=== PATIENT | male | born 2000 | race Asian ===

== ENCOUNTER 2022-06-27 15:54 | Emergency (ER) | payer OTHER ==
[2022-06-27 16:19] VITALS: BP 147/95
--- NOTE | 2022-06-27 16:52 | XRAY Report ---
PROCEDURE: Knee 4 View LT INDICATIONS: L knee pain s/p twist playing basketball TECHNIQUE: 4 views of the left knee(s) were acquired. COMPARISON: None. FINDINGS: Bones: No fractures or dislocations. No suspicious bony lesions. Soft tissues: There is a mild joint effusion. No suspicious soft tissue calcifications. IMPRESSION: Mild joint effusion, without an acute bony abnormality seen. If it would be helpful for clinical management decision making, please consider a dedicated, schedule d knee MRI for further evaluation (assuming that there is no contraindication). Reviewed by: Leo Lugo MD on 06/27/2022 3:50 PM [facility] Approved by: Leo Lugo MD on 06/27/2022 3:50 PM [facility] Station ID: [id number]
--- NOTE | 2022-06-27 17:02 | ED Physician Documentation ---
PD HPI LOWER EXT INJURY - Stated complaint Stated Complaint: LT KNEE INJ - Chief complaint Chief Complaint: Trauma Ext - History obtained from History obtained from: Patient - History of Present Illness PD HPI LOW EXT INJURY LOCATION: Left, Knee Type of injury: Twist Pain level max: 4 Pain level now: 2 Improved by: Rest, Ice Worsened by: Moving, Palpating Associated symptoms: Swelling. No: Weakness, Numbness, Tingling - Additional information Additional information: Patient is a 22-year-old male who presents to the emergency department with a left knee injury. He states he was playing basketball when he twisted the knee. [place] a pop. Worse with walking, better with rest. Noted swelling. Review of Systems Musculoskeletal: denies: Neck pain, Back pain Neurologic: denies: Head injury PD PAST MEDICAL HISTORY - Past Medical History Past Medical History: No - Past Surgical History Past Surgical History: No - Present Medications Home Medications: Ambulatory Orders Medication Instructions Recorded Confirmed No Known Home Medications 06/27/22 06/27/22 - Allergies Allergies/Adverse Reactions: Allergies Allergy/AdvReac Type Severity Reaction Status Date / Time No Known Drug Allergies Allergy Verified 06/27/22 16:18 - Social History Does the pt smoke?: No Smoking Status: Never smoker Does the pt have substance abuse?: No - POLST Patient has POLST: No PD ED PE NORMAL - Vitals Vital signs reviewed: Yes - General General: Alert and oriented X 3, No acute distress - Derm Derm: Warm and dry - Extremities Extremities: Other (R knee - ACL, PCL, MCL, LCL are intact. Small joint effusion. Unable to tolerate meniscus testing well. No gross deformity. Otherwise normal examination of the right lower extremity) - Neuro Neuro: Alert and oriented X 3 - Psych Psych: Normal mood, Normal affect Results - Vitals Vitals: Vital Signs - 24 hr 06/27/22 16:14 Temperature 36.9 C Heart Rate 106 H Respiratory 18 Rate Blood Pressure 147/95 H O2 Saturation 100 Oxygen O2 Source Room air - Rads (name of study) Left knee x-ray Radiology: Final report received, See rad report PD Medical Decision Making - ED course Complexity details: reviewed results, re-evaluated patient, considered differential, d/w patient ED course: 22-year-old male with a left knee injury playing basketball. He is not have any noticeable limp with walking. Has a mild joint effusion on x-ray. Declines any splint or crutches. Declines pain medication. Possible meniscus injury. We will have him follow-up with orthopedics this week before he deploys to ensure that the Knee is healing appropriately. Patient counseled regarding signs and symptoms for which I believe and urgent re-evaluation would be necessary. Patient with good understanding of and agreement to plan and is comfortable going home at this time This document was made in part using voice recognition software. While efforts are made to proofread this document, sound alike and grammatical errors may occur. Departure - Departure Disposition: 01 Home, Self Care Clinical Impression: Knee effusion, left Condition: Good Instructions: ED Effusion Knee Follow-Up: Orthopedic Care [Provider Group] - Within 1 week Comments: Please follow up with orthopedics for further care. Return if you worsen. You can use Motrin or Tylenol as needed for pain. You may bear weight as tolerated. I would recommend that you see orthopedics before you leave for an appointment. You may have a meniscus injury in your knee. IMPRESSION: Mild joint effusion, without an acute bony abnormality seen. If it would be helpful for clinical management decision making, please consider a dedicated, scheduled knee MRI for further evaluation (assuming that there is no contraindication). Discharge Date/Time: 06/27/22 17:33
== END 2022-06-27 17:33 | disposition home or self-care (01) ==
LOC: ED 15:54
DX: M25.462 Effusion, left knee (principal); X50.1XXA Overexertion from prolonged static or awkward postures, initial encounter; Y93.67 Activity, basketball; Y92.310 Basketball court as the place of occurrence of the external cause
CPT/HCPCS: 99283

== ENCOUNTER 2023-03-03 09:56 | Outpatient (CLI) | payer OTHER ==
--- NOTE | 2023-03-03 11:10 | Sleep Patient Instructions ---
Sleep Center Visit Summary - Patient Visit Information Reason for Visit: Initial consult for evaluation of sleep disordered breathing and other sleep issues. - Patient Instructions Instructions Attached: Sleep Study, Sleep Study Home Monitor Additional Instructions: You will be completing a sleep study, either an in-lab polysomnography (PSG) or home sleep study (HST). You will follow-up in the sleep care office after the sleep study is completed to hear the results and talk about therapy, if needed. You will be called by our office staff to schedule this appointment, but you may contact us with any questions. - Clinic Information Contact: [facility] [address] [place] [id number] [email or web address] T: [phone]
--- NOTE | 2023-03-03 11:12 | SLEEP CARE CONSULTATION ---
Information from patient questionnaire entered by Vivek Agarwal. I have reviewed and concur with the information entered by Vivek Agarwal. This document represents the service I personally performed and the decisions made by me, Velvet Gonzalez ARNP. History of Present Illness Service Date and Time: 03/03/2023 0956 Reason for Visit: New patient Chief Complaint: reports: Snoring, Observed pauses in breathing, Frequent awakenings at night Date of Onset: YRS Usual bedtime: 11PM-12AM Time it takes to fall asleep: 1HR Snores at night: Yes Observed to quit breathing while asleep: Yes Sleeps alone due to snoring: No Number of times waking at night: 1 Reasons for waking at night: reports: Choking, Snoring, Gasping for air, Bathroom, Other (NOISE UNKNOWN) Toss, Turn, or Twitch while sleeping: Yes Recalls having dreams: Yes Usually gets out of bed at: 0430 on workdays; otherwise 0800 Feels refreshed in the morning: No Morning headache: No Sleepy or fatigued during the day: Yes Ever fallen asleep while driving: No Takes day naps: Yes (does not really nap ) Dreams during day naps: Yes (NOT OFTEN) Prior sleep studies: No Additional HPI information: I had the pleasure of seeing ROBERT RATLIFF today regarding the possibility of him having a sleep disorder. His current complaints are observed pauses in breathing, snoring and frequent night awakenings. He states he is snoring loudly according to others. He states he does wake up with his uvula swollen about 1 times a month for the last 2 years. The swelling goes down after a couple hours. He has also had girlfriend and other notice that he stops breathing and is making choking sounds. He has woke up feeling like he is choking or gasping for air, but it is not often. 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 Patient is and lives in [place]. Have you smoked in the past 12 months: No (VAPE - nicotine) Cigarettes per day (20/pack): 3 Years of smokin (6-7 months) Quit date: 2020 Smoking Pack Years: 0.1 Alcohol use: Yes Alcohol amount and frequency: 3-4 drinks, 1-2 times a week Caffeine use: Yes Caffeine amount and frequency: [employer] Family History Family history of sleep disordered breathing: No (UNSURE) Family Hx Sleep Apnea: Other: Snoring Allergies and Home Medications Known drug allergies: No Drug allergies reviewed: Yes Home medication list reviewed: Yes Allergy and home medication list: Allergies No Known Drug Allergies Allergy Home Medications Medication Instructions Recorded Confirmed Last Taken Type No Known Home Medications 06/27/22 03/03/23 Unknown History Review of Systems Weight gain over past 5 years: 35 Cardiovascular: denies: high blood pressure Respiratory: reports: wheeze, chronic cough Gastrointestinal: denies: heartburn Neurological: denies: headaches Psychiatric: denies: anxiety, depression Ear/Nose/Throat: reports: wisdom teeth removed (two removed). denies: tonsillectomy Endocrine: denies: thyroid disease Immunologic: denies: allergies to food or environment Physical Exam Vital signs obtained and entered by: VIVEK Maldonado MA Blood Pressure: 124/74 (LEFT ARM) Cuff size: regular Heart Rate: 78 O2 Saturation: 98 Height: 5 ft 4 in Weight: 191 lb 6.4 oz Body Mass Index: 32.8 BMI Classification: Obese Neck circumference: 16 Nostrils: patent to airflow Mouth and throat: narrow oropharynx Soft palate: normal Hard palate: normal Uvula: normal Uvula visualization: 25% Mallampati Class III Tongue: enlarged in size with teeth sneed on lateral edges Tonsils: 3+/kissing Neck: normal w/o lymphadenopathy or thyromegaly Heart: regular rate and rhythm Lungs: clear bilaterally, wheeze (right lower) Impression and Plan 1. Suspected Obstructive Sleep Apnea-Hypopnea Syndrome, as suggested by a history of loud and irregular snoring, observed cessation of breath while asleep, gasping or choking in sleep, frequent awakening during the night and unrefreshed sleep. Narrow oropharynx and obesity are common predisposing factors for obstructive sleep apnea-hypopnea syndrome. I recommend proceeding to polysomnography to confirm the diagnosis and to assess severity. If the patient has significant sleep disordered breathing, a manual CPAP titration study will also be performed to find the optimal treatment pressure. I informed the patient of what the sleep studies involve and after some discussion, obtained agreement to proceed. The pathophysiology of obstructive sleep apnea-hypopnea syndrome was discussed with the patient and health risks of cardiovascular and cerebrovascular disease if not treated. Risks of drowsy driving discussed in de tail and patient advised to avoid long distance driving and to kiln puller at the first sign of drowsiness. Patient agreed to plan. * Schedule polysomnography. * Avoid long distance driving or driving when feeling sleepy. * Avoid alcohol, sedative and muscle relaxant around bedtime. * Attempt to lose weight. * Review instructions provided by trained office staff on how to prepare for the sleep study. * Return for follow-up after sleep study completed. Counseling Topics: Weight loss health impact Plan: PSG/HST Visit Type: In Office Time Spent with Patient (minutes): 30 Provider Statement: I spent 100% of the Face to Face Visit with the patient with greater than 50% spent counseling the patient and coordination of care.
[2023-03-03 11:20] VITALS: BP 124/74; O2SAT 98
== END 2023-03-03 09:57 | disposition home or self-care (01) ==
LOC: SC 09:56
PROVIDERS: ATTEND Nurse Practitioner Family
DX: R06.83 Snoring (principal); G47.8 Other sleep disorders; R06.81 Apnea, not elsewhere classified; E66.9 Obesity, unspecified; Z68.32 Body mass index [BMI] 32.0-32.9, adult; F17.290 Nicotine dependence, other tobacco product, uncomplicated
CPT/HCPCS: 99203; 99212

== ENCOUNTER 2023-04-27 19:35 | Outpatient (CLI) | payer OTHER | END 2023-04-27 19:36 | disposition home or self-care (01) | LOC: SC 19:35 | PROVIDERS: ATTEND Nurse Practitioner Family | DX: G47.33 Obstructive sleep apnea (adult) (pediatric) (principal); E66.9 Obesity, unspecified; Z68.32 Body mass index [BMI] 32.0-32.9, adult | CPT/HCPCS: 95810 ==

== ENCOUNTER 2023-05-19 08:32 | Outpatient (CLI) | payer OTHER ==
--- NOTE | 2023-05-19 08:56 | Sleep Patient Instructions ---
Sleep Center Visit Summary - Patient Visit Information Reason for Visit: Sleep study follow-up - Patient Instructions Instructions Attached: CPAP Additional Instructions: You are being started on CPAP therapy with pressure setting at 4-15 cmH2O. You will need to call the sleep care office to set up your follow up once you have your APAP machine and we will schedule a visit to check compliance and response to therapy at that time. You may call the office with any concerns about pressure feeling too low or too much for adjustment, if needed. You should contact DME supplier for any questions or concerns about mask or equipment. Please call office to schedule a follow up appointment in the sleep care office one month after obtaining new device. - Clinic Information Contact: [facility] [address] [place] [address] [email or web address] T: [phone]
--- NOTE | 2023-05-19 08:59 | SLEEP CARE CONSULTATION ---
Information from patient questionnaire entered by Sabiha Agarwal. I have reviewed and concur with the information entered by Sabiha Agarwal. This document represents the service I personally performed and the decisions made by me, Velvet Gonzalez ARNP. History of Present Illness Service Date and Time: 05/19/2023 0832 Initial [place] Sleepiness Scale score: 8 (03/03/23) Current [place] Sleepiness Scale score: 11 (05/19/23) Additional HPI information: ROBERT RATLIFF returns for follow up and results of the recently performed polysomnography. The sleep study showed moderate obstructive sleep apnea with an average AHI of 25.8 and ally oxygen saturation of 68%. I explained the pathophysiology behind obstructive sleep apnea. We then spent quite a bit of time discussing different treatment options. For mild obstructive sleep apnea, surgery and oral appliance are alternatives to nasal CPAP therapy but in moderate or severe cases, nasal CPAP is the most effective and reliable treatment. Because apnea is primarily in supine position, then positional management therapy could be effective. Methods discussed such as positioning with pillows, using a T-shirt with tennis balls in the back or commercial products that have a pillow format on back to prevent supine sleep. I reviewed the impact of weight changes on sleep apnea and strongly recommended losing weight. After some discussion, the patient opted to go with the nasal CPAP therapy. Nasal autoCPAP set at 4-15 cmH20 will be ordered with rationale explained. A manual titration study will be ordered if unable to find optimal pressure with office adjustments. I explained how CPAP machine works and what to expect when using the machine. Using CPAP every night in order to get used to it was emphasized. Patient advised to put CPAP mask on before getting into bed so as not to fall asleep without CPAP. To assist acclimation to CPAP use, it could also be used for a short time during day while reading or watching TV. The patient was instructed to call the CPAP supplier to discuss any mechanical problem that may occur. If the mask given is uncomfortable or is difficult to keep on through the night even with adjustment, contact the CPAP supplier as many will replace with another mask style if notified before 30 days. If snoring or perceives is not getting enough air or too much air from the machine, notify this office. Patient counseled not drink alcohol less than 4 hours before bedtime as it can increase snoring and apnea. Patient was cautioned about risks of drowsy driving until sleepiness symptoms resolve. Patient denies drowsy driving. Sleep Study - Results Type of Sleep Study: Polysomnography (COMPLETED ) Prior sleep studies: No Polysomnography/Home Sleep Study results: IMPRESSION: The quality of the study is good. The patient had normal sleep effi ciency. The sleep architecture was abnormal for sleep fragmentation and reduced amount of time spent in REM and slow wave sleep (N3). Respiratory monitoring showed moderate obstructive sleep apnea-hypopnea (AHI = 25.8) associated with frequent arousals, oxyhemoglobin desaturation and moderate hypoxia (ally oxygen saturation of 68%). Baseline oxygen saturation was normal. The respiratory events occurred almost exclusively during supine sleep (supine AHI = 57.1; non-supine = 0.99). Snore was moderate to loud in intensity. There was no significant periodic leg movement of sleep. Cardiac rhythm was normal sinus rhythm without significant arrhythmia. No abnormal behavior (parasomnia) observed during the night. Allergies and Home Medications Known drug allergies: No Drug allergies reviewed: Yes Home medication list reviewed: Yes (no changes) Allergy and home medication list: Allergies No Known Drug Allergies Allergy Review of Systems Review of systems same as previous: Yes (NO CHANGE) Physical Exam Vital signs obtained and entered by: SABIHA Maldonado MA Blood Pressure: 152/97 (LEFT ARM) Cuff size: regular Heart Rate: 88 O2 Saturation: 98 Height: 5 ft 4 in Weight: 188 lb 12.8 oz Body Mass Index: 32.3 BMI Classification: Obese Impression and Plan 1. Obstructive Sleep Apnea-Hypopnea Syndrome, moderate, with lowest oxygen saturation of 68%. Obviously this is the cause of the patients symptoms of unrefreshed sleep, and excessive daytime sleepiness. As mentioned above, the patient will be started on nasal autoCPAP therapy with pressure set at 4-15 cmH2 O. Compliance guidelines also reviewed. A copy of compliance guidelines will be given for reference at check out. Because the apnea is more severe supine, I instructed to avoid sleeping supine using pillow positioning until able to start CPAP use. 2. Hypoxemia, moderate, with a ally oxygen saturation of 68% and 63.1 minutes spent under 90%. The baseline oxygen saturation was normal with an average oxygen saturation of 95%. 3. Obesity, unspecified. Currently patients BMI is 32.3. Obesity increases the risk of apnea, CPAP pressure requirements and overall health risks especially cardiovascular and diabetes. Thus patient is advised to lose weight. * Nasal auto CPAP therapy, pressure at 4-15 cmH2O. * Attempt to lose weight. * Avoid alcohol consumption near bedtime. * Avoid supine sleep until using CPAP. * The patient is again cautioned about driving until sleepiness completely resolves. * Return one month after CPAP obtained. I will assess response to therapy and compliance at that time. Counseling Topics: Sleeping position, Weight loss health impact Prescriptions: Auto CPAP Follow up with Sleep Care in: other (compliance followup) Visit Type: In Office Time Spent with Patient (minutes): 21 Provider Statement: I spent 100% of the Face to Face Visit with the patient with greater than 50% spent counseling the patient and coordination of care.
[2023-05-19 09:08] VITALS: BP 152/97; O2SAT 98
== END 2023-05-19 08:33 | disposition home or self-care (01) ==
LOC: SC 08:32
PROVIDERS: ATTEND Nurse Practitioner Family
DX: G47.33 Obstructive sleep apnea (adult) (pediatric) (principal); R09.02 Hypoxemia; E66.9 Obesity, unspecified; Z68.32 Body mass index [BMI] 32.0-32.9, adult
CPT/HCPCS: 99212; 99213